=== PATIENT | female | born 1960 | race Caucasian/White ===

== ENCOUNTER 2023-04-15 19:48 | Emergency (ER) | payer MEDICAID, OTHER ==
[~2023-04-15] VITALS: Ht 152.4 cm; Wt 91.0 kg
[2023-04-15 20:00] VITALS: O2SAT 98
[2023-04-15 23:00] VITALS: TEMP 98.2
[2023-04-15] MEDS: ACETAMINOPHEN 325MG TABLET PO ONE (23:00)
[2023-04-15] MEDS ORDERED: T3 PO (23:07)
[2023-04-15 23:15] VITALS: BP 155/95; PULSE 94; RESP 14
[2023-04-15] MEDS: IBUPROFEN 400MG TABLET PO ONE (23:15)
== END 2023-04-16 00:21 | disposition home or self-care (01) ==
LOC: ER 19:48
DX: M25.572 Pain in left ankle and joints of left foot (principal); E11.9 Type 2 diabetes mellitus without complications
CPT/HCPCS: 29515; 73590; 73610; 73630; 99284